=== PATIENT | male | born 1975 | race Caucasian/White ===

== ENCOUNTER 2017-10-19 15:55 | Emergency (ER) | payer BC ==
[~2017-10-19] VITALS: Ht 175.3 cm; Wt 86.2 kg
[2017-10-19] MEDS ORDERED: LEVOTHYROXINE100 MC1 PO (16:03)
[2017-10-19] MEDS ORDERED: FISH OIL 1,001000 M2 PO (16:04)
[2017-10-19 16:38] LABS: ABSOLUTE LYMPHOCYTES 0.7 thou/uL (0.8-5.3); ABSOLUTE MONOCYTES 0.3 thou/uL (0.0-1.2); ABSOLUTE NEUTROPHILS 2.6 thou/uL (1.6-8.1); BASOPHILS 0.7 %; EOSINOPHILS 0.5 %; HEMATOCRIT 44.8 % (42.0-52.0); HEMOGLOBIN 15.4 gm/dL (14.0-18.0); LYMPHOCYTES 18.7 %; MCHC 34.4 g/dL (28.0-37.0); MONOCYTES 8.4 %; NUCLEATED RBCS 0 /100WBC; PLATELET COUNT* 111 thou/uL (150-400); POLYS 71.7 %; RBC 4.82 mil/uL (4.50-6.00); RDW-CV 13.5 % (10.5-14.5); WBC 3.6 thou/uL (4.0-11.0)
[2017-10-19 16:44] LABS: ANION GAP 9 mmol/L (7-16); BUN 13 mg/dL (7-18); CALCIUM 9.3 mg/dL (8.5-10.1); CHLORIDE 100 mmol/L (98-107); CO2 27 mmol/L (21-32); CREATININE 1.3 mg/dL (0.6-1.3); GLUCOSE 166 mg/dL (70-99); POTASSIUM 3.6 mmol/L (3.5-5.1); SODIUM 136 mmol/L (136-145)
[2017-10-19 16:51] LABS: ALBUMIN 3.9 g/dL (3.4-5.0); ALKALINE PHOSPHATASE 38 U/L (46-116); SGOT 42 U/L (15-37); SGPT 65 U/L (30-65); TOTAL BILIRUBIN 1.8 mg/dL (<0.1-1.0); TOTAL PROTEIN 7.3 g/dL (6.4-8.2); TROPONIN-I LEVEL <0.06 ng/mL (<0.06)
[2017-10-19 17:45] LABS: URINE BLOOD NEGATIVE (Negative); URINE CLARITY CLEAR; URINE COLOR YELLOW; URINE GLUCOSE-RANDOM NEGATIVE (Negative); URINE KETONES NEGATIVE (Negative); URINE LEUKOCYTES-REFLEX NEGATIVE (Negative); URINE NITRITE-REFLEX NEGATIVE (Negative); URINE PROTEIN TRACE (Negative); URINE SPECIFIC GRAVITY 1.025 (1.005-1.030)
[2017-10-19 17:47] LABS: ICTOTEST (BILI CONFIRMATORY) Negative (Negative); URINE BILIRUBIN 1+ (Negative)
[2017-10-19 17:53] LABS: AMP/METHAMP Negative (Negative); BARBITURATES Negative (Negative); BENZODIAZEPINES Negative (Negative); COCAINE Negative (Negative); METHADONE Negative (Negative); OPIATES Negative (Negative); PCP Negative (Negative); THC Negative (Negative)
[2017-10-19 18:24] VITALS: BP 137/97
--- NOTE | 2017-10-20 11:04 | EKG ---
[place] [address] ELECTROCARDIOGRAM REPORT Name: KAMILA DAI Room: [facility]#: [id number] Admission: 10/19/17 Attend Phys: Discharge: 10/19/17 Date of : 73 Report #: [id number] THIS REPORT FOR: //name// [facility] ED Test Date: 2017-10-19 Test Time: 16:22:04 Pat Name: KAMILA DAI Department: Room: Gender: Car[employer] Inspector: Stephanie DUQUE : 1975 Requested By: Alea Fung Order Number: [id number] MD: Vinay Fields Measurements Intervals [place] Rate: 52 P: 27 OK: 160 QRS: 19 QRSD: 90 T: 9 QT: 426 QTc: 397 Interpretive Statements Sinus bradycardia Borderline T abnormalities, anterior leads No previous ECG available for comparison Electronically Signed On 10-20-2017 11:03:48 CDT by Vinay Fields [email or web address] <ELECTRONICALLY SIGNED> By: Vinay Fields MD, [facility] 10/20/17 1103 1622 1622 Vinay Fields MD, FACC /EPI
== END 2017-10-19 18:25 | disposition home or self-care (01) ==
LOC: M.ERS 15:55
PROVIDERS: Nurse Practitioner Family
DX: R03.0 Elevated blood-pressure reading, without diagnosis of hypertension (principal); B34.9 Viral infection, unspecified; E03.9 Hypothyroidism, unspecified